=== PATIENT | female | born 1940 | race Caucasian/White ===

== ENCOUNTER 2017-05-27 07:33 | Day surgery (SDC) | payer MEDICARE, OTHER ==
[2017-05-23 16:28] LABS: BASOPHILS % (AUTO) 0.9 % (0-1); EOSINOPHILS # (AUTO) 0.5 X10'3 (0-0.9); EOSINOPHILS % (AUTO) 9.3 % (0-6); LYMPHOCYTES # (AUTO) 1.5 X10'3 (1.1-4.8); LYMPHOCYTES % (AUTO) 27.4 % (21-51); MEAN CORPUSCULAR HEMOGLOBIN 32.2 PG (27.0-31.0); MEAN CORPUSCULAR VOLUME 94.7 FL (78-98); MEAN PLATELET VOLUME 7.6 FL (7.4-10.4); MONOCYTES # (AUTO) 0.4 X10'3 (0-0.9); MONOCYTES % (AUTO) 7.7 % (2-12); NEUTROPHILS % (AUTO) 54.7 % (42-75); PRE OP HEMATOCRIT 37.2 % (35.0-45.0); PRE OP HEMOGLOBIN 12.7 g/dL (12.0-16.0); PRE OP PLATELET COUNT 247 X10'3 (140-440); RED BLOOD COUNT 3.93 X10'6 (4.20-5.60)
[2017-05-23 16:42] LABS: HEMOGLOBIN A1C 6.1 % (4.5-6.2)
[2017-05-23 16:50] LABS: ALBUMIN/GLOBULIN RATIO 1.2 (1.1-1.5); ALKALINE PHOSPHATASE 88 IU/L (46-116); BLOOD UREA NITROGEN 15 MG/DL (7-18); CALCIUM 9.1 MG/DL (8.5-10.1); CHLORIDE 106 MMOL/L (99-107); PRE OP ALT 33 U/L (30-65); PRE OP ANION GAP 7 (8-16); PRE OP AST 30 U/L (10-37); PRE OP BILIRUB, TOTAL 0.4 MG/DL (0.0-1.0); PRE OP GLUCOSE 109 MG/DL (70-104); PRE OP SODIUM 142 MMOL/L (135-145); TOTAL CARBON DIOXIDE 29.5 MMOL/L (24-32); TOTAL PROTEIN 7.4 G/DL (6.4-8.2); eGFR > 90 ML/MIN
[~2017-05-27] VITALS: Ht 149.9 cm; Wt 63.7 kg
[2017-05-27] VITALS (11 sets, daily range): BP systolic 85–156; BP diastolic 62–94
[~2017-05-27 07:33] MED LIST: CALC600T12 PO; CARB1TAB35 PO; CYAN-19 PO; FLUO-1 PO; LOVA40TA2 PO; METF10002 PO; OMEP40CA37 PO; PRAM0.258 PO; WOMAN'S ONE A DAY PO; famotidine 20mg tablet PO ONE; ringers solution, lacted 1,000 ML IV SCH
[2017-05-27] MEDS ORDERED: NORMAL SALINE IV ONE (08:45)
[2017-05-27] MEDS ORDERED: GENTAMICIN IV ONE (08:45)
[2017-05-27] MEDS ORDERED: clindamycin 600mg/D5W 50ml 50 ML IV ONE (08:45)
[2017-05-27] MEDS ORDERED: cefazolin/dext.iso 2gm/50ml 50 ML IV ONE (09:10)
[2017-05-27] MEDS ORDERED: morphine 10mg/ml inj. ONE (10:06)
[2017-05-27] MEDS ORDERED: LIDOcaine 1% 30ml vial 0 ML ONE (10:07)
[2017-05-27] MEDS ORDERED: BUPIVAcaine/PF 2.5 mg/ml (0.25%) 30ml vial ONE (10:07)
[2017-05-27] MEDS ORDERED: sevoflurane 250ml liquid IH ONE (10:25)
[2017-05-27] MEDS ORDERED: fentaNYL/PF 50MCG/1 ML 2ML syringe ONE ×2 (10:28→11:03)
[2017-05-27] MEDS ORDERED: dexamethasone sod phosphate 4mg/ml inj. ONE (10:37)
[2017-05-27] MEDS ORDERED: ringers solution, lacted 500 ML IV SCH (11:09)
[2017-05-27] MEDS ORDERED: HYDROcodone/acetaminophen 10/325mg tab PO PRN (11:10)
[2017-05-27] MEDS ORDERED: ondansetron/PF 4mg/2ml inj IV PRN ×2 (11:10→11:35)
[2017-05-27] MEDS ORDERED: HYDROcodone/acetaminophen 5mg/325mg tablet PO PRN (11:10)
[2017-05-27] MEDS ORDERED: ipratropium/albuterol 3ml nebule ONE (11:33)
[2017-05-27] MEDS ORDERED: ringers solution, lacted 1,000 ML IV SCH (11:33)
[2017-05-27] MEDS ORDERED: HYDROmorphone 1 mg/ml syringe IV PRN (11:35)
[2017-05-27] MEDS ORDERED: morphine 2 MG/ML inj. syringe IV PRN (11:35)
[2017-05-27] MEDS ORDERED: albuterol 2.5 MG/3 ML nebule NEB ONE (11:35)
[2017-05-27] MEDS ORDERED: propofol inj 20 ML IV ONE (11:38)
[2017-05-27] MEDS ORDERED: ondansetron/PF 4mg/2ml inj ONE (11:38)
[2017-05-27] MEDS ORDERED: LIDOcaine 2% (20mg/ml) 5ml vial ONE (11:38)
[2017-05-27] MEDS ORDERED: rocuronium 10mg/ml inj IV ONE (11:38)
[2017-05-27] MEDS ORDERED: albuterol 60 PUFF/8GM Inhaler IH ONE (11:38)
[2017-05-27] MEDS ORDERED: neostigmine methylsulfate 1 MG/ML 10ml vial ONE (11:38)
[2017-05-27] MEDS ORDERED: glycopyrrolate 0.2mg/ml inj ONE (11:38)
[2017-05-27] MEDS: ipratropium/albuterol 3ml nebule NEB PRN ×2 (11:39→11:42)
== END 2017-05-27 13:24 | disposition home or self-care (01) ==
LOC: PAS 07:33
PROVIDERS: ATTEND Specialist
DX: N95.0 Postmenopausal bleeding (principal); D26.1 Other benign neoplasm of corpus uteri; N85.8 Other specified noninflammatory disorders of uterus; G20 Parkinson's disease; K21.9 Gastro-esophageal reflux disease without esophagitis; R94.2 Abnormal results of pulmonary function studies; E11.9 Type 2 diabetes mellitus without complications; Z72.89 Other problems related to lifestyle; Z88.2 Allergy status to sulfonamides; Z98.890 Other specified postprocedural states; Z79.84 Long term (current) use of oral hypoglycemic drugs; Z79.899 Other long term (current) drug therapy; Z79.2 Long term (current) use of antibiotics
CPT/HCPCS: 36415; 58558; 80053; 82948; 83036; 85025; 85610; 85730; 86885; 86900; 86901; 94640; 94760; A4355; A6253; J0690; J1100; J2001; J2405; J2704; J2710; J3010; J3490; J7120; 88305; J1580; J2270; J7030